=== PATIENT | male | born 1970 | race Caucasian/White ===

== ENCOUNTER → 2017-04-29 | Day surgery (SDC) | payer MEDICARE, MEDICAID ==
[~2017-04-29] VITALS: Ht 182.9 cm; Wt 83.9 kg
[~2017-04-29] MED LIST: LEVO100T5 PO; LIDOCAINE 2% INJ 100 MG/5 ML SDV (FOR ANES.) As Ordered ONE; LIDOCAINE 2% W/ EPINEPHRINE 1.7 ML DENTAL INJ As Ordered ONE; LR 1,000 ML IV ONE; LR 1,000 ML IV SCH; MEPERIDINE INJ 25 MG/ML VIAL (J2175) IV PRN; METOCLOPRAMIDE INJ 10MG/2ML VIAL (J2765) As Ordered ONE; METOCLOPRAMIDE INJ 10MG/2ML VIAL (J2765) IV PRN; ONDANSETRON 4MG/2ML VIAL (J2405) As Ordered ONE; ONDANSETRON 4MG/2ML VIAL (J2405) IV PRN; PERCOCET 5MG/325MG TAB PO PRN; PROPOFOL 200 MG/20 ML VIAL As Ordered ONE; ROCURONIUM BROMIDE 50 MG/5 ML VIAL As Ordered ONE; SUCCINYLCHOLINE 100 MG/5 ML SYRINGE (J0330) As Ordered ONE; dexameTHASONE 4 MG/ML 1ML VIAL (J1100) As Ordered ONE; ePHEDrine SULFATE 25 MG/5 ML(5MG/ML) SYRINGE As Ordered ONE; fentaNYL 100 MCG/2 ML INJECTION (J3010) As Ordered ONE; fentaNYL 100 MCG/2 ML INJECTION (J3010) IV PRN
[2017-04-29 14:20] VITALS: BP 127/83
== END | disposition home or self-care (01) ==
LOC: M SDC 09:08
PROVIDERS: ATTEND Dentist
DX: K02.9 Dental caries, unspecified (principal); F72 Severe intellectual disabilities; K04.7 Periapical abscess without sinus; E03.9 Hypothyroidism, unspecified; Z79.899 Other long term (current) drug therapy
CPT/HCPCS: 41899; 88300; J0330; J1100; J2405; J2765; J3010